=== PATIENT | male | born 1960 | race Caucasian/White ===

== ENCOUNTER 2018-11-07 18:06 | Emergency (ER) | payer OTHER ==
[~2018-11-07] VITALS: Ht 175.3 cm; Wt 81.6 kg
[2018-11-07] MEDS ORDERED: PREDNISONE20 MG (18:26)
[2018-11-07] MEDS ORDERED: ZOLOFT50 MG (18:26)
[2018-11-07] MEDS ORDERED: AMBIEN10 MG (18:26)
== END 2018-11-07 20:16 | disposition home or self-care (01) ==
LOC: ER 18:06
DX: R25.1 Tremor, unspecified (principal); F06.4 Anxiety disorder due to known physiological condition